=== PATIENT | male | born 1950 | race Caucasian/White ===

== ENCOUNTER 2016-09-27 18:17 | Inpatient (IN) | payer OTHER ==
[~2016-09-27] VITALS: Ht 182.9 cm; Wt 94.2 kg
[2016-09-27] MEDS ORDERED: SODIUM CHLORIDE 0.9% 1,000ML IVBOLUS ONE (19:00)
[2016-09-27] MEDS ORDERED: SODIUM CHLORIDE FLUSH 10ML SYR IVF ONE (19:00)
[2016-09-27 19:13] LABS: HEMOGLOBIN 8.7 g/dL (13.7-18.0)
[2016-09-27 19:26] LABS: ASPARTATE AMINO TRANSFERASE 142 U/L (15-37); BLOOD UREA NITROGEN 27 mg/dL (7-18)
[2016-09-27 19:37] LABS: DIFF TOTAL CELLS COUNTED 100 CELL DIFF
[2016-09-27 19:39] LABS: ANISOCYTOSIS 1+; HYPOCHROMIA 1+; MICROCYTOSIS 1+; VERIFY COUNTS? YES
[2016-09-27 19:40] LABS: POLYCHROMASIA 1+
[2016-09-27] MEDS ORDERED: OMNIPAQUE 350 MG/ML, 100ML BOTTLE ONE ×2 (20:01→21:44)
[2016-09-27] MEDS ORDERED: PIPERACILLIN/TAZO/PMX 3.375GM 50 ML IV ONE (20:30)
[2016-09-27] MEDS ORDERED: SODIUM CHLORIDE 0.9%, 500ML IVBOLUS ONE (20:30)
[2016-09-27] MEDS ORDERED: PIPERACILLIN/TAZO/PMX 3.375GM 50 ML ONE (20:31)
[2016-09-27 21:37] LABS: IS PT STATUS REG ER OR PRE ER? YES
[2016-09-27] MEDS: PIPERACILLIN/TAZO/PMX 3.375GM 50 ML IV SCH (21:55)
[2016-09-27] MEDS ORDERED: BISACODYL 10 MG SUPP PR PRN (22:00)
[2016-09-27] MEDS ORDERED: ONDANSETRON 2MG/ML, 2ML IVP PRN (22:00)
[2016-09-27] MEDS ORDERED: AAA-ALL IV'S IN NORMAL SALINE IV PRN (22:00)
[2016-09-27] MEDS ORDERED: HEPARIN 5,000 UNITS/ML, 1ML IV ONE (22:00)
[2016-09-27] MEDS ORDERED: VANCOMYCIN PER PHARMACY MC PRN (22:00)
[2016-09-27] MEDS ORDERED: HEPARIN 5,000 UNITS/ML, 1ML ONE (22:10)
[2016-09-27] MEDS ORDERED: HEPARIN 25,000 UNITS/500ML PMX 500 ML ONE (22:10)
[2016-09-27] MEDS: HEPARIN 25,000 UNITS/500ML PMX 500 ML IV PRN (22:13)
[2016-09-27] MEDS ORDERED: PHARMACOKINETIC MONITORING MC PRN (23:00)
[2016-09-27] MEDS: MORPHINE SULFATE 4 MG/ML, 1ML IVPush PRN ×2 (23:04→23:32)
[2016-09-27] MEDS: SODIUM CHLORIDE 0.9% 1,000 ML IV SCH (23:07)
[2016-09-27] MEDS: VANCOMYCIN 1,700 MG in SODIUM CHLORIDE 0.9% 250 ML IV SCH (23:15)
[2016-09-27 23:36] VITALS: BP 120/70
[2016-09-28] VITALS (11 sets, daily range): BP systolic 94–110; BP diastolic 54–65
[2016-09-28 00:54] LABS: RAPID INFLUENZA B Negative (Negative)
[2016-09-28 01:00] LABS: RAPID INFLUENZA A POSITIVE (Negative)
[2016-09-28] MEDS: MORPHINE SULFATE 4 MG/ML, 1ML IVPush PRN (02:32)
[2016-09-28] MEDS: PIPERACILLIN/TAZO/PMX 3.375GM 50 ML IV SCH ×3 (04:25→18:00)
[2016-09-28 04:30] LABS: HEMOGLOBIN 7.9 g/dL (13.7-18.0)
[2016-09-28 04:45] LABS: BLOOD UREA NITROGEN 20 mg/dL (7-18)
[2016-09-28 04:49] LABS: ASPARTATE AMINO TRANSFERASE 109 U/L (15-37)
[2016-09-28] MEDS: HEPARIN 5,000 UNITS/ML, 1ML IV PRN ×2 (04:49→15:47)
[2016-09-28 05:39] LABS: DIFF TOTAL CELLS COUNTED 100 CELL DIFF
[2016-09-28 05:40] LABS: ANISOCYTOSIS 1+; HYPOCHROMIA 1+; POLYCHROMASIA 1+; VERIFY COUNTS? YES
[2016-09-28] MEDS: SODIUM CHLORIDE 0.9% 1,000 ML IV SCH ×2 (10:00→16:00)
[2016-09-28] MEDS ORDERED: MOVIPREP POWDER 1 PREP KIT PO ONE (17:00)
[2016-09-28 18:11] LABS: HEMOGLOBIN 6.6 g/dL (13.7-18.0)
[2016-09-28 18:18] LABS: DIFF TOTAL CELLS COUNTED 100 CELL DIFF
[2016-09-28 18:51] LABS: ANISOCYTOSIS 1+; HYPOCHROMIA 1+; MICROCYTOSIS 1+; POLYCHROMASIA 1+; VERIFY COUNTS? YES
[2016-09-28] MEDS: HEPARIN 25,000 UNITS/500ML PMX 500 ML IV PRN (22:06)
[2016-09-29] VITALS (7 sets, daily range): BP systolic 96–112; BP diastolic 56–69
[2016-09-29] MEDS: HEPARIN 5,000 UNITS/ML, 1ML IV PRN ×3 (01:00→16:31)
[2016-09-29] MEDS: PIPERACILLIN/TAZO/PMX 3.375GM 50 ML IV SCH ×4 (01:27→17:41)
[2016-09-29] MEDS: MORPHINE SULFATE 4 MG/ML, 1ML IVPush PRN (01:29)
[2016-09-29] MEDS: SODIUM CHLORIDE 0.9% 1,000 ML IV SCH ×3 (01:30→22:30)
[2016-09-29] MEDS: VANCOMYCIN 1,700 MG in SODIUM CHLORIDE 0.9% 250 ML IV SCH ×2 (02:10→22:30)
[2016-09-29 08:29] LABS: HEMOGLOBIN 8.9 g/dL (13.7-18.0)
[2016-09-29] MEDS: FERROUS SULFATE 325 MG TABLET PO SCH ×3 (08:30→17:41)
[2016-09-29 08:56] LABS: DIFF TOTAL CELLS COUNTED 100 CELL DIFF
[2016-09-29 08:58] LABS: VERIFY COUNTS? YES
[2016-09-29 08:59] LABS: ANISOCYTOSIS 1+; MICROCYTOSIS 1+; POLYCHROMASIA 1+
[2016-09-29 09:00] LABS: HYPOCHROMIA 1+
[2016-09-29 09:01] LABS: SPHEROCYTES 1+
[2016-09-29 09:33] LABS: ASPARTATE AMINO TRANSFERASE 34 U/L (15-37); BLOOD UREA NITROGEN 21 mg/dL (7-18)
[2016-09-29] MEDS ORDERED: FENTANYL PF 100 MCG/2ML ONE (11:05)
[2016-09-29] MEDS ORDERED: MIDAZOLAM 1 MG/ML, 5ML ONE ×2 (11:05)
[2016-09-29] MEDS: HEPARIN 25,000 UNITS/500ML PMX 500 ML IV PRN (16:31)
[2016-09-30] MEDS: PIPERACILLIN/TAZO/PMX 3.375GM 50 ML IV SCH ×5 (01:03→23:49)
[2016-09-30] MEDS: HEPARIN 5,000 UNITS/ML, 1ML IV PRN (01:04)
[2016-09-30 02:05] VITALS: BP 120/71
[2016-09-30] MEDS: MORPHINE SULFATE 4 MG/ML, 1ML IVPush PRN ×2 (05:17→23:59)
[2016-09-30 07:20] VITALS: BP 115/72
[2016-09-30 07:29] LABS: HEMOGLOBIN 8.4 g/dL (13.7-18.0)
[2016-09-30 07:40] LABS: ASPARTATE AMINO TRANSFERASE 83 U/L (15-37); BLOOD UREA NITROGEN 15 mg/dL (7-18)
[2016-09-30] MEDS: FERROUS SULFATE 325 MG TABLET PO SCH ×3 (08:58→16:33)
[2016-09-30] MEDS: SODIUM CHLORIDE 0.9% 1,000 ML IV SCH ×2 (08:59→21:04)
[2016-09-30] MEDS: POLYETHYLENE GLYCOL 17 GM PACKET PO SCH (09:30)
[2016-09-30 13:58] VITALS: BP 115/71
[2016-09-30] MEDS: VANCOMYCIN 1,700 MG in SODIUM CHLORIDE 0.9% 250 ML IV SCH (14:52)
[2016-09-30] MEDS: APIXABAN 5 MG TABLET PO SCH (16:33)
[2016-09-30] MEDS ORDERED: PHENOL THROAT SPRAY BOTTLE MM PRN (17:00)
[2016-09-30 20:20] VITALS: BP 113/67
[2016-09-30] MEDS: OXYcodone/APAP 5/325MG TABLET PO PRN (22:05)
[2016-10-01 02:41] VITALS: BP 111/70
[2016-10-01 06:06] LABS: HEMOGLOBIN 8.3 g/dL (13.7-18.0)
[2016-10-01] MEDS: APIXABAN 5 MG TABLET PO SCH ×2 (06:14→17:53)
[2016-10-01] MEDS: PIPERACILLIN/TAZO/PMX 3.375GM 50 ML IV SCH ×3 (06:14→18:54)
[2016-10-01 06:23] LABS: ASPARTATE AMINO TRANSFERASE 31 U/L (15-37); BLOOD UREA NITROGEN 13 mg/dL (7-18)
[2016-10-01 06:31] LABS: DIFF TOTAL CELLS COUNTED 100 CELL DIFF
[2016-10-01 06:34] LABS: VERIFY COUNTS? YES
[2016-10-01 06:35] LABS: ANISOCYTOSIS 1+
[2016-10-01 06:36] LABS: HYPOCHROMIA 1+; MICROCYTOSIS 1+; POLYCHROMASIA 1+
[2016-10-01 06:42] LABS: SPHEROCYTES 1+
[2016-10-01 07:16] VITALS: BP 114/63
[2016-10-01] MEDS ORDERED: APIXABAN/HEPARIN MC SCH (08:00)
[2016-10-01] MEDS: POLYETHYLENE GLYCOL 17 GM PACKET PO SCH (09:00)
[2016-10-01] MEDS: FERROUS SULFATE 325 MG TABLET PO SCH ×3 (09:02→17:53)
[2016-10-01] MEDS: VANCOMYCIN 1,700 MG in SODIUM CHLORIDE 0.9% 250 ML IV SCH (09:02)
[2016-10-01] MEDS: SODIUM CHLORIDE 0.9% 1,000 ML IV SCH (11:30)
[2016-10-01 13:40] VITALS: BP 112/62
[2016-10-01] MEDS ORDERED: ALBUMIN HUMAN 25% 100 ML IV ONE (17:30)
[2016-10-01 18:38] VITALS: BP 106/67
[2016-10-01] MEDS: OXYcodone/APAP 5/325MG TABLET PO PRN ×2 (18:54→23:29)
[2016-10-01 21:10] VITALS: BP 118/69
[2016-10-01] MEDS: MORPHINE SULFATE 4 MG/ML, 1ML IVPush PRN (21:19)
[2016-10-02] MEDS: PIPERACILLIN/TAZO/PMX 3.375GM 50 ML IV SCH ×2 (01:15→06:02)
[2016-10-02 02:00] VITALS: BP 109/67
[2016-10-02] MEDS: VANCOMYCIN 1,700 MG in SODIUM CHLORIDE 0.9% 250 ML IV SCH (03:41)
[2016-10-02] MEDS: SODIUM CHLORIDE 0.9% 1,000 ML IV SCH (03:41)
[2016-10-02] MEDS: MORPHINE SULFATE 4 MG/ML, 1ML IVPush PRN (03:54)
[2016-10-02] MEDS: APIXABAN 5 MG TABLET PO SCH (06:01)
[2016-10-02 06:40] VITALS: BP 110/69
[2016-10-02 07:12] LABS: HEMOGLOBIN 8.3 g/dL (13.7-18.0)
[2016-10-02 07:18] LABS: ASPARTATE AMINO TRANSFERASE 29 U/L (15-37); BLOOD UREA NITROGEN 11 mg/dL (7-18)
[2016-10-02] MEDS: POLYETHYLENE GLYCOL 17 GM PACKET PO SCH (08:05)
[2016-10-02] MEDS: FERROUS SULFATE 325 MG TABLET PO SCH ×2 (08:05→12:00)
[2016-10-02] MEDS ORDERED: ONDA4TAB13 SL (11:48)
[2016-10-02] MEDS ORDERED: APIX5TAB PO (11:48)
[2016-10-02] MEDS ORDERED: TRAM50TA2 PO (11:48)
[2016-10-02] MEDS ORDERED: FERR325T20 PO (11:48)
[2016-10-02] MEDS ORDERED: CEFD300C2 PO (11:48)
[2016-10-02] MEDS ORDERED: LACT1CAP24 PO (11:48)
[2016-10-02] MEDS ORDERED: POLY17PO5 PO (11:48)
[2016-10-02] MEDS ORDERED: METR500T PO (11:48)
[2016-10-02] MEDS ORDERED: OXYC1TAB7 PO (11:48)
[2016-10-02 12:27] VITALS: BP 118/70
== END 2016-10-02 13:45 | disposition home or self-care (01) | DRG 871 ==
LOC: ED 20:54 → EDIP 20:55 → ED 21:46 → 5SO 22:40
PROC: 0T9B30Z Drainage of Bladder with Drainage Device, Percutaneous Approach (ICD-10-PCS; 2016-09-28)
PROC: 30233N1 Transfusion of Nonautologous Red Blood Cells into Peripheral Vein, Percutaneous Approach (ICD-10-PCS; 2016-09-28)
PROC: 0DBM8ZX Excision of Descending Colon, Via Natural or Artificial Opening Endoscopic, Diagnostic (ICD-10-PCS; principal; 2016-09-29 11:00)
DX: A41.9 Sepsis, unspecified organism (principal); N17.0 Acute kidney failure with tubular necrosis; E43 Unspecified severe protein-calorie malnutrition; I81 Portal vein thrombosis; A04.9 Bacterial intestinal infection, unspecified; D62 Acute posthemorrhagic anemia; D68.59 Other primary thrombophilia; E87.1 Hypo-osmolality and hyponatremia; J98.11 Atelectasis; K83.0 Cholangitis; K50.10 Crohn's disease of large intestine without complications; D63.8 Anemia in other chronic diseases classified elsewhere; D75.89 Other specified diseases of blood and blood-forming organs; E83.41 Hypermagnesemia; E80.6 Other disorders of bilirubin metabolism; J11.1 Influenza due to unidentified influenza virus with other respiratory manifestations; K57.30 Diverticulosis of large intestine without perforation or abscess without bleeding; K64.4 Residual hemorrhoidal skin tags; N18.3 Chronic kidney disease, stage 3 (moderate); M54.9 Dorsalgia, unspecified; K63.89 Other specified diseases of intestine; Z90.49 Acquired absence of other specified parts of digestive tract; Z80.42 Family history of malignant neoplasm of prostate; Z87.81 Personal history of (healed) traumatic fracture; Z87.891 Personal history of nicotine dependence; Z68.28 Body mass index [BMI] 28.0-28.9, adult
CPT/HCPCS: 36415; 71020; 71275; 74177; 80053; 80202; 81003; 82378; 82728; 83036; 83540; 83550; 83605; 83615; 83690; 83735; 84100; 84145; 84484; 85025; 85520; 85610; 86256; 86704; 86706; 86708; 86803; 86850; 86900; 86923; 87040; 87340; 87400; 88305; 93005; 96361; 96365; 96367; J1644; J2250; J2543; J3010; J3370; P9047; Q9967; J7030; J7040; J7050; P9016

== ENCOUNTER → 2016-12-23 | Outpatient (CLI) | payer OTHER ==
[~2016-12-23] MED LIST: APIX5TAB PO; CEFD300C37 PO; FERR325T20 PO; LACT1CAP24 PO; METR500T PO; ONDA4TAB13 SL; OXYC1TAB7 PO; POLY17PO5 PO; SINCALIDE (KINEVAC) 5 MCG ONE; TRAM50TA2 PO
== END | disposition home or self-care (01) ==
LOC: PETCFH 07:49
PROVIDERS: ATTEND Internal Medicine
DX: K82.8 Other specified diseases of gallbladder (principal)
CPT/HCPCS: 78227; A9537; J2805

== ENCOUNTER → 2016-12-23 | Outpatient (CLI) | payer OTHER ==
[~2016-12-23] MED LIST changes: -SINCALIDE (KINEVAC) 5 MCG ONE
== END | disposition home or self-care (01) ==
LOC: CFH 08:02
PROVIDERS: ATTEND Internal Medicine
DX: K76.9 Liver disease, unspecified (principal); R16.2 Hepatomegaly with splenomegaly, not elsewhere classified; Z86.718 Personal history of other venous thrombosis and embolism
CPT/HCPCS: 76700

== ENCOUNTER 2017-01-19 09:27 | Inpatient (IN) | payer OTHER ==
[2017-01-19] VITALS (16 sets, daily range): BP systolic 92–115; BP diastolic 48–89
[~2017-01-19] VITALS: Ht 180.3 cm; Wt 79.8 kg
[2017-01-19] MEDS ORDERED: TRIA0.2517 PO (10:11)
[2017-01-19] MEDS ORDERED: SODIUM CHLORIDE FLUSH 10ML SYR IVF ONE (10:30)
[2017-01-19] MEDS ORDERED: SODIUM CHLORIDE 0.9% 1,000ML IVBOLUS ONE ×2 (10:30→11:30)
[2017-01-19 10:35] LABS: ASPARTATE AMINO TRANSFERASE 10 U/L (15-37); BLOOD UREA NITROGEN 17 mg/dL (7-18)
[2017-01-19 10:47] LABS: ANISOCYTOSIS 1+; HYPOCHROMIA 2+; POLYCHROMASIA 1+
[2017-01-19 10:51] LABS: MICROCYTOSIS 1+
[2017-01-19] MEDS ORDERED: HYDROcodone/APAP 5/325 TABLET PO PRN (12:00)
[2017-01-19] MEDS ORDERED: POTASSIUM CHLORIDE 20 MEQ TAB.ER.PRT PO ONE (12:00)
[2017-01-19] MEDS ORDERED: ACETAMINOPHEN 325 MG TABLET PO PRN (12:00)
[2017-01-19] MEDS ORDERED: ONDANSETRON 2MG/ML, 2ML IVPush PRN (12:00)
[2017-01-19] MEDS ORDERED: FUROSEMIDE 20 MG/2 ML IV ONE (12:00)
[2017-01-19] MEDS ORDERED: POTASSIUM CHLORIDE 10 MEQ TABLET.ER ONE (16:25)
[2017-01-19] MEDS ORDERED: FUROSEMIDE 20 MG/2 ML ONE (16:28)
[2017-01-19] MEDS: FAMOTIDINE 20 MG TABLET PO SCH ×2 (16:38→21:56)
[2017-01-19] MEDS ORDERED: TRIAZOLAM 0.125 MG TABLET PO PRN (21:00)
[2017-01-19] MEDS ORDERED: TEMAZEPAM 15 MG CAPSULE PO PRN (22:00)
[2017-01-20 02:35] VITALS: BP 105/65
[2017-01-20 06:26] LABS: BLOOD UREA NITROGEN 18 mg/dL (7-18)
[2017-01-20 07:50] VITALS: BP 101/62
[2017-01-20] MEDS: FAMOTIDINE 20 MG TABLET PO SCH (10:18)
[2017-01-20] MEDS ORDERED: FERR325T20 PO (10:53)
[2017-01-20] MEDS ORDERED: PRED10TA PO (10:53)
== END 2017-01-20 11:53 | disposition home or self-care (01) | DRG 377 ==
LOC: ED 11:15 → EDIP 11:16 → ED 11:27 → 3NE 12:18
PROVIDERS: ADMIT Internal Medicine; ATTEND Internal Medicine
PROC: 30233N1 Transfusion of Nonautologous Red Blood Cells into Peripheral Vein, Percutaneous Approach (ICD-10-PCS; principal; 2017-01-19)
DX: K92.2 Gastrointestinal hemorrhage, unspecified (principal); E43 Unspecified severe protein-calorie malnutrition; K51.911 Ulcerative colitis, unspecified with rectal bleeding; D50.0 Iron deficiency anemia secondary to blood loss (chronic); I95.9 Hypotension, unspecified; E87.6 Hypokalemia; F17.290 Nicotine dependence, other tobacco product, uncomplicated; Z79.01 Long term (current) use of anticoagulants; Z68.24 Body mass index [BMI] 24.0-24.9, adult; Z86.718 Personal history of other venous thrombosis and embolism
CPT/HCPCS: 36415; 80048; 80053; 81003; 83605; 85025; 85610; 85730; 86850; 86900; 86923; 87324; 89055; 93005; 96360; J1940; J7030; J7512; P9016

== ENCOUNTER 2017-03-12 11:32 | Inpatient (IN) | payer OTHER ==
[~2017-03-12] VITALS: Ht 180.3 cm; Wt 76.9 kg
[~2017-03-12 11:32] MED LIST changes: +PRED10TA PO; +TRIA0.2517 PO
[2017-03-12] MEDS ORDERED: SODIUM CHLORIDE 0.9% 1,000 ML IV ONE (12:20)
[2017-03-12] MEDS ORDERED: SODIUM CHLORIDE FLUSH 10ML SYR IVF ONE (12:30)
[2017-03-12] MEDS ORDERED: PANTOPRAZOLE 40 MG IV IVPush ONE (12:30)
[2017-03-12] MEDS ORDERED: PANTOPRAZOLE 40 MG IV ONE (12:50)
[2017-03-12 12:57] LABS: HEMATOCRIT 27.2 % (39.2-51.8); HEMOGLOBIN 8.6 g/dL (13.7-18.0); WHITE BLOOD COUNT 5.5 x10^3/uL (3.4-10)
[2017-03-12 13:06] LABS: BLOOD UREA NITROGEN 18 mg/dL (7-18)
[2017-03-12 13:10] LABS: ASPARTATE AMINO TRANSFERASE 11 U/L (15-37)
[2017-03-12 15:54] LABS: HEMATOCRIT 25.5 % (39.2-51.8); HEMOGLOBIN 8.1 g/dL (13.7-18.0)
[2017-03-12] MEDS ORDERED: morphine SULFATE 10 MG/ML, 1ML IVPush PRN (16:00)
[2017-03-12] MEDS ORDERED: METOCLOPRAMIDE 5 MG/ML, 2ML IVPush PRN (16:00)
[2017-03-12] MEDS ORDERED: PROMETHAZINE 25 MG/ML, 1ML IM PRN (16:00)
[2017-03-12] MEDS ORDERED: ONDANSETRON 2MG/ML, 2ML IVPush PRN (16:00)
[2017-03-12 16:40] VITALS: BP 96/59
[2017-03-12] MEDS: methylPREDNISolone SOD SUCC 40 MG/ML IVPush SCH ×2 (17:59→23:11)
[2017-03-12] MEDS: SODIUM CHLORIDE 0.9% 1,000 ML IV SCH (18:00)
[2017-03-12 19:16] VITALS: BP 112/67
[2017-03-12 22:18] LABS: HEMATOCRIT 24.3 % (39.2-51.8); HEMOGLOBIN 7.7 g/dL (13.7-18.0)
[2017-03-13 01:49] VITALS: BP 103/63
[2017-03-13] MEDS: SODIUM CHLORIDE 0.9% 1,000 ML IV SCH (03:56)
[2017-03-13 04:28] LABS: HEMATOCRIT 24.8 % (39.2-51.8); HEMOGLOBIN 7.8 g/dL (13.7-18.0); WHITE BLOOD COUNT 3.9 x10^3/uL (3.4-10)
[2017-03-13 04:37] LABS: BLOOD UREA NITROGEN 15 mg/dL (7-18)
[2017-03-13 04:42] LABS: ASPARTATE AMINO TRANSFERASE 10 U/L (15-37)
[2017-03-13] MEDS: methylPREDNISolone SOD SUCC 40 MG/ML IVPush SCH ×3 (08:48→23:49)
[2017-03-13] MEDS: IRON SUCROSE COMPLEX 100MG/5ML IV SCH (08:49)
[2017-03-13] MEDS ORDERED: MAGNESIUM SULFATE PMX 2GM/50ML 50 ML IV ONE (09:00)
[2017-03-13 09:39] LABS: HEMATOCRIT 25.7 % (39.2-51.8); HEMOGLOBIN 8.2 g/dL (13.7-18.0)
[2017-03-13 09:48] VITALS: BP 105/71
[2017-03-13] MEDS ORDERED: TRIAZOLAM 0.125 MG TABLET PO SCH (13:30)
[2017-03-13 14:00] VITALS: BP 100/67
[2017-03-13 18:58] VITALS: BP 107/66
[2017-03-13] MEDS: TRIAZOLAM 0.125 MG TABLET PO SCH (21:00)
[2017-03-14] VITALS (7 sets, daily range): BP systolic 92–104; BP diastolic 46–62
[2017-03-14 05:36] LABS: WHITE BLOOD COUNT 7.4 x10^3/uL (3.4-10)
[2017-03-14 05:38] LABS: HEMATOCRIT 21.6 % (39.2-51.8)
[2017-03-14 05:39] LABS: BLOOD UREA NITROGEN 17 mg/dL (7-18)
[2017-03-14 06:21] LABS: DIFF TOTAL CELLS COUNTED 100 CELL DIFF
[2017-03-14 06:27] LABS: VERIFY COUNTS? YES
[2017-03-14 06:28] LABS: ANISOCYTOSIS 1+; MICROCYTOSIS 1+
[2017-03-14] MEDS: methylPREDNISolone SOD SUCC 40 MG/ML IVPush SCH ×3 (08:00→23:14)
[2017-03-14] MEDS: IRON SUCROSE COMPLEX 100MG/5ML IV SCH (08:00)
[2017-03-14 11:57] LABS: HEMATOCRIT 25.6 % (39.2-51.8); HEMOGLOBIN 8.3 g/dL (13.7-18.0)
[2017-03-14] MEDS: HYDROCORTISONE 25 MG SUPP PR SCH ×2 (13:01→21:42)
[2017-03-14] MEDS: TRIAZOLAM 0.125 MG TABLET PO SCH (21:00)
[2017-03-14 21:23] LABS: HEMATOCRIT 26.7 % (39.2-51.8); HEMOGLOBIN 8.6 g/dL (13.7-18.0)
[2017-03-15 01:18] VITALS: BP 105/58
[2017-03-15 05:34] LABS: HEMATOCRIT 24.5 % (39.2-51.8); HEMOGLOBIN 7.9 g/dL (13.7-18.0); WHITE BLOOD COUNT 8.7 x10^3/uL (3.4-10)
[2017-03-15 05:48] LABS: BLOOD UREA NITROGEN 18 mg/dL (7-18)
[2017-03-15 07:46] VITALS: BP 96/48
[2017-03-15] MEDS: methylPREDNISolone SOD SUCC 40 MG/ML IVPush SCH (08:42)
[2017-03-15] MEDS: HYDROCORTISONE 25 MG SUPP PR SCH (08:42)
[2017-03-15] MEDS: IRON SUCROSE COMPLEX 100MG/5ML IV SCH (08:42)
[2017-03-15] MEDS ORDERED: HYDROCORTISONE OINT 2.5%, 20GM TP SCH (09:30)
[2017-03-15] MEDS ORDERED: MESALAMINE 400 MG CAPSULE.DR PO SCH (10:30)
[2017-03-15 11:03] LABS: HEMATOCRIT 26.5 % (39.2-51.8); HEMOGLOBIN 8.5 g/dL (13.7-18.0)
[2017-03-15 13:47] VITALS: BP 96/51
[2017-03-15] MEDS ORDERED: PRED10TA PO (15:14)
[2017-03-15] MEDS ORDERED: Mesalamine PO (15:14)
[2017-03-15] MEDS ORDERED: HYDR453.4 TP (15:14)
[2017-03-15] MEDS ORDERED: HYDR25SU3 PR (15:14)
== END 2017-03-15 16:59 | disposition home or self-care (01) | DRG 385 ==
LOC: ED 12:38 → EDIP 14:25 → 3NE 15:47
PROVIDERS: ADMIT Internal Medicine; ATTEND Internal Medicine
PROC: 30233N1 Transfusion of Nonautologous Red Blood Cells into Peripheral Vein, Percutaneous Approach (ICD-10-PCS; principal; 2017-03-14)
DX: K51.911 Ulcerative colitis, unspecified with rectal bleeding (principal); E43 Unspecified severe protein-calorie malnutrition; N17.0 Acute kidney failure with tubular necrosis; I81 Portal vein thrombosis; D68.69 Other thrombophilia; D62 Acute posthemorrhagic anemia; E83.42 Hypomagnesemia; K92.1 Melena; K51.511 Left sided colitis with rectal bleeding; Z68.23 Body mass index [BMI] 23.0-23.9, adult; D63.8 Anemia in other chronic diseases classified elsewhere; D75.89 Other specified diseases of blood and blood-forming organs
CPT/HCPCS: 36415; 80048; 80053; 83735; 84100; 85014; 85018; 85025; 85610; 85730; 86850; 86900; 86923; 87324; 96374; J1756; C9113; J2270; J2920; J3475; J7030; P9016

== ENCOUNTER → 2017-10-10 | Outpatient (CLI) | payer OTHER ==
[~2017-10-10] MED LIST changes: +FERR325T18 PO; -FERR325T20 PO; +HYDR25SU3 PR; +HYDR453.4 TP; +Mesalamine PO; -TRIA0.2517 PO; +TRIA0.2576 PO
== END ==
LOC: CFH 12:02
PROVIDERS: ATTEND Internal Medicine Gastroenterology
DX: M79.604 Pain in right leg (principal); R22.41 Localized swelling, mass and lump, right lower limb; K59.1 Functional diarrhea; I85.00 Esophageal varices without bleeding; K51.90 Ulcerative colitis, unspecified, without complications; E73.9 Lactose intolerance, unspecified